=== PATIENT | male | born 1955 | race Caucasian/White ===

== ENCOUNTER 2018-12-07 12:17 | Emergency (ER) | payer BC ==
--- NOTE | 2018-12-07 13:40 | EDM.PDOC ---
ED HPI GENERAL MEDICAL PROBLEM - General Chief Complaint: Cardiovascular Problem Stated Complaint: HIGH BP/DIZZY Time Seen by Provider: 12/07/18 12:59 Source of Information: Reports: Patient, Family (), RN Notes Reviewed History Limitations: Reports: No Limitations - History of Present Illness INITIAL COMMENTS - FREE TEXT/NARRATIVE: The patient states that he developed dizziness, which she means a commendation of both lightheadedness and a spinning sensation, when he woke this morning, however, his corrected him, stating that he began complaining of dizziness late Thursday night, 12/04/19/05/11, after he went to bed. He states that his symptoms are made worse with rapid movements, although not ordinary movements, and that he had some difficulty walking down his hallway - that he had to touch the wall a few times. He states that he has associated nausea. No associated chest pain, palpitations, or dyspnea. No recent headache, sinus pressure, or URI symptoms. No recent fever. He denies tinnitus. No decreased hearing in either ear. No ear pain in either ear. The patient states that he checked his blood pressure, and found it to be elevated at 161/89. He was concerned that his symptoms were due to his elevated blood pressure. He states that he called his PCP, who instructed him to take an additional half tablet of his enalapril, however, the patient's corrected him, stating that he never called her, and that she never told him to do that - she states that he did that entirely on his own. The patient states that he had similar symptoms about 2 years ago, that resolved on its own. Here in the ED, it is noted that the patient's oxygen saturation is 100% on room air. The patient's PCP is Nanci Fuentes. Headache Pain Score (Numeric/FACES): 0 - Related Data Allergies Allergy/AdvReac Type Severity Reaction Status Date / Time No Known Allergies Allergy Verified 12/07/18 12:27 Home Meds: Home Meds Enalapril Maleate 1 tab PO DAILY 12/07/18 [History] Meclizine [Antivert] 1 tab PO Q6H PRN #20 tab 12/07/18 [Rx] Naproxen [Naprosyn] 500 mg PO Q12HR 12/07/18 [History] Ondansetron [Zofran ODT] 1 tab PO Q8H PRN #10 tab.dis 12/07/18 [Rx] Past Medical History HEENT History: Reports: Impaired Vision (wears glasses) Cardiovascular History: Reports: Hypertension Genitourinary History: Reports: BPH ( untreated), Renal Calculus Oncologic (Cancer) History: Reports: Prostate - Past Surgical History HEENT Surgical History: Reports: Oral Surgery (wisdom teeth extraction) Social & Family History - Family History Family Medical History: Noncontributory HEENT: Reports: None Cardiac: Reports: None Respiratory: Reports: None GI: Reports: None : Reports: None OBGYN: Reports: None Musculoskeletal: Reports: None Neurological: Reports: None Psychiatric: Reports: None Endocrine/Metabolic: Reports: Diabetes, type II Immunologic: Reports: None Oncologic: Reports: Other (See Below) Other Oncologic Family History: stomach - Tobacco Use Smoking Status *Q: Never Smoker - Caffeine Use Caffeine Use: Reports: None - Alcohol Use Alcohol Use History: Yes Alcohol Use Frequency: Rarely - Recreational Drug Use Recreational Drug Use: No - Living Situation & Occupation Living situation: Reports: , with Spouse 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 ED EXAM, GENERAL - Physical Exam Exam: See Below Exam Limited By: No Limitations General Appearance: Alert, WD/WN, No Apparent Distress Eye Exam: Bilateral Eye: EOMI, Normal Inspection, PERRL Ears: Normal External Exam, Normal Canal, Hearing Grossly Normal, Normal TMs Nose: Normal Inspection, Normal Mucosa, No Blood Throat/Mouth: Normal Inspection, Normal Lips, Normal Teeth, Normal Gums, Normal Oropharynx, Normal Voice, No Airway Compromise Head: Atraumatic, Normocephalic Neck: Normal Inspection, Supple, Non-Tender, Full Range of Motion. No: Lymphadenopathy (L), Lymphadenopathy (R) Respiratory/Chest: No Respiratory Distress, Lungs Clear, Normal Breath Sounds, No Accessory Muscle Use Cardiovascular: Normal Peripheral Pulses, Regular Rate, Rhythm, No Edema, No Gallop, No JVD, No Murmur, No Rub Peripheral Pulses: 4+: Radial (L), Radial (R) GI/Abdominal: Normal Bowel Sounds, Soft, Non-Tender, No Organomegaly, No Distention, No Abnormal Bruit, No Mass (Male) Exam: Deferred Rectal (Males) Exam: Deferred Back Exam: Normal Inspection, Full Range of Motion, NT Extremities: Normal Inspection, Normal Range of Motion, No Pedal Edema, Normal Capillary Refill Neurological: Alert, Oriented, CN II-XII Intact, Normal Cognition, No Motor/ Sensory Deficits, Other (Neither vertigo nor nystagmus were induced with bilateral Tonya-Hallpike maneuvers) Psychiatric: Normal Affect Skin Exam: Warm, Dry, Intact, Normal Color, No Rash EKG INTERPRETATION EKG Date: 12/07/18 Time: 13:56 Rhythm: NSR Rate (Beats/Min): 66 [place]: Normal P-Wave: Present QRS: Normal ST-T: Normal QT: Normal Comparison: NA - No Prior EKG Course - Vital Signs Last Recorded V/S: Last Vital Signs Temp 36.3 C 12/07/18 12:32 Pulse 69 12/07/18 12:32 Resp 16 12/07/18 12:32 BP 163/92 H 12/07/18 12:32 Pulse Ox 100 12/07/18 12:32 Orthostatic Blood Pressure [ 160/87 Standing] Orthostatic Blood Pressure [ 172/85 Sitting] Orthostatic Blood Pressure [ 158/84 Supine] - Orders/Labs/Meds Orders: Active Orders 24 hr Category Date Time Status EKG Documentation Completion [RC] STAT Care 12/07/18 13:31 Active Orthostatic Vital Signs [RC] STAT Care 12/07/18 13:31 Active Labs: Laboratory Tests 12/07/18 12/07/18 12/07/18 Range/Units 14:25 14:25 14:25 WBC 16.28 H (4.23-9.07) K/mm3 RBC 5.48 (4.63-6.08) M/mm3 Hgb 15.9 (13.7-17.5) gm/L Hct 48.4 (40.1-51.0) % MCV 88.3 (79.0-92.2) fl MCH 29.0 (25.7-32.2) pg MCHC 32.9 (32.2-35.5) g/dl RDW Std Deviation 47.8 H (35.1-43.9) fL Plt Count 186 (163-337) K/mm3 MPV 11.2 (9.4-12.3) fl Neutrophils % (Manual) 88 H (40-60) % Band Neutrophils % 1 (0-10) % Lymphocytes % (Manual) 10 L (20-40) % Atypical Lymphs % 0 % Monocytes % (Manual) 1 L (2-10) % Eosinophils % (Manual) 0 L (0.8-7.0) % Basophils % (Manual) 0 L (0.2-1.2) Platelet Estimate Adequate RBC Morph Comment Normal D-Dimer, Quantitative 0.64 H (0.19-0.50) mg/L Sodium 140 (136-145) mEq/L Potassium 4.4 (3.5-5.1) mEq/L Chloride 106 (98-107) mEq/L Carbon Dioxide 25 (21-32) mEq/L Anion Gap 13.4 (5-15) BUN 17 (7-18) mg/dL Creatinine 1.1 (0.7-1.3) mg/dL Est Cr Clr Drug Dosing 74.46 mL/min Estimated GFR (MDRD) > 60 (>60) mL/min BUN/Creatinine Ratio 15.5 (14-18) Glucose 112 (80-115) mg/dL Calcium 9.7 (8.5-10.1) mg/dL Magnesium 2.0 (1.8-2.4) mg/dl Total Bilirubin 0.5 (0.2-1.0) mg/dL AST 31 (15-37) U/L ALT 38 (16-63) U/L Alkaline Phosphatase 46 (46-116) U/L Troponin I < 0.017 (0.00-0.056) ng/mL Total Protein 7.2 (6.4-8.2) g/dl Albumin 3.7 (3.4-5.0) g/dl Globulin 3.5 gm/dL Albumin/Globulin Ratio 1.1 (1-2) TSH 3rd Generation 1.413 (0.358-3.74) uIU/mL - Re-Assessments/Exams Free Text/Narrative Re-Assessment/Exam: 12/07/18 13:33 It is not entirely clear if the dizziness that the patient describes is vertigo or lightheadedness. He states that his symptoms worsen with rapid movements, and that he had at least a little bit of difficulty walking in a straight line down his hallway, however, his Tonya-Hallpike maneuver is completely negative, despite the patient stating that his symptoms are still present. The patient's oxygen saturation is noted to be 100% on room air, indicating that he is hyperventilating, which could be responsible for his lightheadedness. As per the HPI, he denies recent chest pain, palpitations, or dyspnea, therefore a PE or AMI is highly unlikely, nevertheless, I have ordered a workup to rule out medical causes of hyperventilation, that includes blood work, a chest x-ray, orthostatics, and an ECG. 12/07/18 14:19 The patient is not orthostatic. 2-view chest radiograph appears to be grossly normal. The cardiac silhouette is within normal limits. No pulmonary vascular congestion. No pleural effusions. No focal infiltrate. No pneumothorax. Formal read per the Radiologist pending. 12/07/18 15:59 Test results discussed with the patient and his . Today's workup is unremarkable, and does not explain why the patient might be hyperventilating. By a process of elimination, I suspect it is most likely related to anxiety, and I suspect that the patient's presenting symptom of dizziness is likely related to anxiety and hyperventilation. I advised the patient that if his symptoms persist, that he contact his PCP to discuss treatment options for anxiety. On the off-chance that his symptoms are due to genuine BPPV, I will prescribe both meclizine and Zofran, and refer the patient to ENT. Departure - Departure Time of Disposition: 16:01 Disposition: Home, Self-Care 01 Condition: Good Clinical Impression: Dizziness, Hyperventilation syndrome, Anxiety - Discharge Information *PRESCRIPTION DRUG MONITORING PROGRAM REVIEWED*: Not Applicable *COPY OF PRESCRIPTION DRUG MONITORING REPORT IN PATIENT RAO: Not Applicable Prescriptions: Meclizine [Antivert] 1 tab PO Q6H PRN #20 tab PRN Reason: Dizziness Ondansetron [Zofran ODT] 1 tab PO Q8H PRN #10 tab.dis PRN Reason: Nausea/Vomiting Instructions: Hyperventilation, Living With Anxiety Referrals: Nanci Fuentes NP [Primary Care Provider] - Elie Coto MD [Ordering Only Provider] - Forms: ED Department Discharge Additional Instructions: You were seen in the emergency room for dizziness since Thursday evening, 2018. Workup in the ER included blood work, positional blood pressure checks, a chest x-ray, and an ECG. Your oxygen saturation was found to be 100% on room air, consistent with hyperventilation. Hyperventilation is usually caused by anxiety, but can be caused by medical problems, as well. A workup to evaluate the cause of your hyperventilation was performed, and returned unremarkable. You do not have an infection, significant electrolyte abnormalities, a heart attack, a blood clot in your lungs, or hyperthyroidism. You are not dehydrated. You do not have pneumonia. 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 Based on your history, physical exam, and ER tests, the cause of your hyperventilation is most likely do to anxiety, and anxiety is most likely the cause of your dizziness, as no nystagmus was able to be induced during the [place]- Hallpike maneuver. If your symptoms persist, we recommend that you follow-up with your PCP, Nanci Fuentes, to discuss treatment options for anxiety. Alternatively, you can follow-up with the ENT Dr. Elie Coto, in [place], for further evaluation to see if your dizziness is due to benign paroxysmal positional vertigo (BPPV). Prescriptions for the anti-vertigo medicine meclizine and the anti-nausea medicine Zofran have been sent to the [facility], located in the [facility] grocery store. Take one tablet of meclizine up to every 6 hours as needed for dizziness. If you take meclizine, do not drive for 10 hours afterwards, as meclizine can make you tired. Dissolve one tablet of Zofran on your tongue up to every 8 hours, as needed for nausea/vomiting. If any other problems, please do not hesitate to return to the ER. - My Orders Last 24 Hours: My Active Orders 12/07/18 13:31 EKG Documentation Completion [RC] STAT Orthostatic Vital Signs [RC] STAT - Assessment/Plan Last 24 Hours: My Active Orders 12/07/18 13:31 EKG Documentation Completion [RC] STAT Orthostatic Vital Signs [RC] STAT
--- NOTE | 2018-12-07 14:41 | CR ---
Chest: Two views of the chest were obtained. Comparison: No prior chest x-ray. Heart size and mediastinum are within normal limits. Lungs are clear. Bony structures are unremarkable for patient's age. Impression: 1. Nothing acute is seen on two-view chest x-ray. Diagnostic code #1
== END 2018-12-07 16:20 | disposition home or self-care (01) ==
LOC: JD.ED 12:17
DX: R42 Dizziness and giddiness (principal); F45.8 Other somatoform disorders; F41.9 Anxiety disorder, unspecified; Z79.899 Other long term (current) drug therapy
CPT/HCPCS: 36415; 71046; 71046-26; 80053; 83735; 84443; 84484; 85007; 85027; 85379; 93005; 93010; 99284; 99284-25

== ENCOUNTER 2021-06-27 06:59 | Day surgery (SDC) | payer MEDICARE, BC ==
[~2021-06-27 06:59] MED LIST: Lactated Ringers 1,000 ML IV SCH; Lidocaine 1%/Sod Bicarbonate in NS 8.4% 1 ML Syringe IDERM PRN; Sodium Chloride 0.9% 10 ML Syringe FLUSH PRN
[2021-06-27] MEDS ORDERED: Propofol 200 MG/20 ML SDV ONE (07:04)
[2021-06-27] MEDS ORDERED: Midazolam 1 MG/ML 2 ML SDV ONE (07:04)
[2021-06-27] MEDS ORDERED: fentaNYL 100 MCG/2 ML SDV ONE (07:04)
[2021-06-27] MEDS ORDERED: Lidocaine 1% 4 ML ONE (07:04)
--- NOTE | 2021-06-27 07:35 | PCM.PREANE ---
Preanesthetic Assessment - Procedure Proposed Procedure: screening colonoscopy - Anesthesia/Transfusion/Family Hx Anesthesia History: Prior Anesthesia Reaction Type of Anesthesia Reaction: Excessive Somnolence Family History of Anesthesia Reaction: No Transfusion History: No Prior Transfusion(s) - Review of Systems General: No Symptoms Pulmonary: No Symptoms Cardiovascular: No Symptoms Gastrointestinal: No Symptoms Neurological: No Symptoms Other: Reports: None - Physical Assessment NPO Status Date: 06/27/21 NPO Status Time: 04:00 (prep) Vital Signs: 145/86 76 99% 98.1 16 Height: 6 ft Weight: 90 kg ASA Class: 2 Mental Status: Alert & Oriented x3 Airway Class: Mallampati = 1 Dentition: Reports: Normal Dentition, [place](s) Thyro-Mental Finger Breadths: 3 Mouth Opening Finger Breadths: 3 ROM/Head Extension: Full Lungs: Clear to Auscultation, Normal Respiratory Effort Cardiovascular: Regular Rate, Regular Rhythm - Allergies Allergies/Adverse Reactions: Allergies Allergy/AdvReac Type Severity Reaction Status Date / Time No Known Allergies Allergy Verified 06/26/21 11:51 - Blood Blood Available: No - Acknowledgements Anesthesia Type Planned: MAC Pt an Appropriate Candidate for the Planned Anesthesia: Yes Alternatives and Risks of Anesthesia Discussed w Pt/Guardian: Yes Pt/Guardian Understands and Agrees with Anesthesia Plan: Yes PreAnesthesia Questionnaire - Past Health History Medical/Surgical History: Denies Medical/Surgical History HEENT History: Reports: Other (See Below) Other HEENT History: cerumen impaction Cardiovascular History: Reports: High Cholesterol, Hypertension Respiratory History: Reports: Other (See Below) Other Respiratory History: cough Gastrointestinal History: Reports: Other (See Below) Other Gastrointestinal History: left lower quadrant pain Genitourinary History: Reports: Renal Calculus Other Genitourinary History: elevated PSA 9.6 SITE SAFETY MANAGER History: Reports: None Musculoskeletal History: Reports: Other (See Below) Other Musculoskeletal History: right leg pain, sciatic pain Neurological History: Reports: None Other Neuro History: dizziness Psychiatric History: Reports: None Endocrine/Metabolic History: Reports: None Hematologic History: Reports: Other (See Below) Other Hematologic History: elevated potassium Immunologic History: Reports: None Oncologic (Cancer) History: Reports: Prostate Other Oncologic History: newly dx Dermatologic History: Reports: None - Infectious Disease History Infectious Disease History: Reports: None - Past Surgical History Head Surgeries/Procedures: Reports: None HEENT Surgical History: Reports: Other (See Below) (skin spots on ear) Cardiovascular Surgical History: Reports: None Respiratory Surgical History: Reports: None GI Surgical History: Reports: Colonoscopy Female Surgical History: Reports: None Male Surgical History: Reports: None, TURP-Transurethral Resection of Prostate Endocrine Surgical History: Reports: None Neurological Surgical History: Reports: None Oncologic Surgical History: Reports: Other (See Below) Other Oncologic Surgeries/Procedures: prostate biopsy Dermatological Surgical History: Reports: None - SUBSTANCE USE Tobacco Use Status *Q: Never Tobacco User Tobacco Use Within Last Twelve Months: No Second Hand Smoke Exposure: No Days Per Week of Alcohol Use: 0 Recreational Drug Use History: No - HOME MEDS Home Medications: Home Meds Enalapril Maleate 5 mg PO DAILY 12/07/18 [History] Ascorbic Acid [Vitamin C] 1,000 mg PO DAILY 06/26/21 [History] Cholecalciferol (Vitamin D3) [Vitamin D3] 5,000 unit PO DAILY 06/26/21 [History] Multivitamin 1 tab PO DAILY 06/26/21 [History] Zinc 50 mg PO DAILY 06/26/21 [History] - CURRENT (IN HOUSE) MEDS Current Meds: Current Medications Lactated Ringer's (Ringers, Lactated) 1,000 mls @ 125 mls/hr IV ASDIRECTED LIZA Lidocaine/Sodium Bicarbonate (Lidocaine 1%/Sod Bicarbonate In Ns 8.4% 1 Ml Syringe) 0.25 ml IDERM ONETIME PRN PRN Reason: Prior to IV Start Sodium Chloride (Sodium Chloride 0.9% 10 Ml Syringe) 10 ml FLUSH ASDIRECTED PRN PRN Reason: Keep Vein Open Discontinued Medications Fentanyl (Fentanyl 100 Mcg/2 Ml Sdv) Confirm Administered Dose 100 mcg .ROUTE .STK-MED ONE Stop: 06/27/21 07:05 Lidocaine HCl (Xylocaine-Mpf 1%) Confirm Administered Dose 4 mls @ as directed .ROUTE .STK-MED ONE Stop: 06/27/21 07:05 Midazolam HCl (Midazolam 1 Mg/Ml 2 Ml Sdv) Confirm Administered Dose 2 mg .ROUTE .STK-MED ONE Stop: 06/27/21 07:05 Propofol (Propofol 200 Mg/20 Ml Sdv) Confirm Administered Dose 200 mg .ROUTE .STK-MED ONE Stop: 06/27/21 07:05
--- NOTE | 2021-06-27 08:32 | PCM48HPAN ---
Post Anesthesia Note - EVALUATION WITHIN 48HRS OF ANESTHETIC Vital Signs in Normal Range: Yes Patient Participated in Evaluation: Yes Respiratory Function Stable: Yes Airway Patent: Yes Cardiovascular Function Stable: Yes Hydration Status Stable: Yes Pain Control Satisfactory: Yes Nausea and Vomiting Control Satisfactory: Yes Mental Status Recovered: Yes Vital Signs: 122/84 94% 79 14 98.1
--- NOTE | 2021-06-27 08:33 | PCM.PRNOTE ---
- Free Text/Narrative Note: Date: 06/27/2021 Procedure: screening colonoscopy History: average risk for colon cancer, normal colonoscopy 10 years ago Endoscopist: Stevan Elizabeth MD Findings: excellent prep. Ileocecal valve well visualized. Three small subcentimeter polyps identified and removed with cold forceps. Sigmoid diverticulosis. Small, benign-feeling cystic lesion adjacent to anus on right side. Detailed Report: The patient was taken to the endoscopy suite and placed in left lateral decubitus position. Time out was performed and monitored anesthesia care initiated. There appeared to be an area of fullness at the right lateral aspect of the anal verge. On palpation, a small subcutaneous mobile nodule or cyst was palpable. Prostate felt to be surgically absent. Digital exam otherwise unremarkable. The colonoscope was inserted and advanced to the cecum. The ileocecal valve was well visualized. The prep was very good. The scope was slowly withdrawn and mucosal surfaces carefully inspected. Three subcentimeter polyps were identified and removed using cold forceps. Sigmoid diverticulosis was noted. No pathology was noted within the rectum on retroflexion. Air was suctioned from the distal colon and rectum prior to withdrawal of the scope. The patient tolerated the procedure well.
== END 2021-06-27 09:20 | disposition home or self-care (01) ==
LOC: JD.SDS 06:59
PROVIDERS: ATTEND Surgery
DX: Z12.11 Encounter for screening for malignant neoplasm of colon (principal); D12.3 Benign neoplasm of transverse colon; D12.4 Benign neoplasm of descending colon; D12.5 Benign neoplasm of sigmoid colon; K57.30 Diverticulosis of large intestine without perforation or abscess without bleeding; I10 Essential (primary) hypertension; E78.5 Hyperlipidemia, unspecified; Z79.899 Other long term (current) drug therapy; Z98.890 Other specified postprocedural states
CPT/HCPCS: 45380; 88305; J2250; J2704; J3010; J7120; 00812